=== PATIENT | male | born 1995 | race American Indian/Alaskan Native ===

== ENCOUNTER 2018-09-03 20:52 | Emergency (ER) | payer OTHER ==
[2018-09-03 21:02] VITALS: BP 119/68; PULSE 83; RESP 22; TEMP 97.8; O2SAT 95
--- NOTE | 2018-09-03 21:29 | C.PDOC ---
History Of Present Illness 23 yo male come in for evaluation of nasal congestion, throat itchiness, hives rash developed 5 minutes after had Casas. Pt reports, took benadryl right after with some improvement in symptoms. Pt sts, episode happened 1.5 hrs ago. AT present time, pt still c/o nasal congestion. Pt admits, similar sx in past " to food but not sure what exactly". Pt denies fever chills, throat tightness or swelling, drooling, dysphagia, dyspnea, CP, SOB, wheezing, abd. pain, V/D. AT present time ,pt appears comfortable, not in resp distress. Time Seen by Provider: 09/03/18 21:07 Chief Complaint (Nursing): ENT Problem History Per: Patient Past Medical History Reviewed: Historical Data, Nursing Documentation, Vital Signs Vital Signs: Last Vital Signs Temp 97.8 F 09/03/18 20:59 Pulse 83 09/03/18 20:59 Resp 22 09/03/18 20:59 BP 119/68 09/03/18 20:59 Pulse Ox 95 09/03/18 20:59 Primary Care Provider: Non [facility] Provider, - Medical History PMH: No Chronic Diseases Family History: States: No Known Family Hx - Social History Hx Alcohol Use: No Hx Substance Use: No - Immunization History Hx Tetanus Toxoid Vaccination: No Hx Influenza Vaccination: No Hx Pneumococcal Vaccination: No Review Of Systems Except As Marked, All Systems Reviewed And Found Negative. Constitutional: Negative for: Fever, Chills ENT: Positive for: Nose Congestion. Negative for: Ear Discharge, Nose Discharge, Throat Pain, Throat Swelling Cardiovascular: Negative for: Chest Pain Respiratory: Negative for: Cough, Shortness of Breath, Wheezing Gastrointestinal: Negative for: Nausea, Vomiting, Abdominal Pain Musculoskeletal: Negative for: Neck Pain Skin: Positive for: Rash Neurological: Negative for: Altered Mental Status, Headache, Dizziness Physical Exam - Physical Exam Appears: Well, Non-toxic, No Acute Distress Skin: Normal Color, Warm, Dry, No Rash Head: Normacephalic Eye(s): bilateral: PERRL Nose: No Flaring, No Discharge Oral Mucosa: Moist, No Drooling Tongue: No Swelling Lips: No Swelling Throat: No Erythema, No Drooling, Other (uvula midline, no edema.) Neck: Trachea Midline, Supple Cardiovascular: Rhythm Regular, No Murmur, No JVD Respiratory: No Decreased Breath Sounds, No Accessory Muscle Use, No Stridor, No Wheezing Gastrointestinal/Abdominal: Soft, No Tenderness Extremity: Normal ROM, No Swelling Neurological/Psych: Oriented x3, Normal Speech ED Course And Treatment O2 Sat by Pulse Oximetry: 95 Pulse Ox Interpretation: Normal Progress Note: On re-eval, pt is afebrile, hemodynamicaly stable. NOn-toxic. [place] Po well in Ed. PulseOx 95% RA. ENT: no acute findings, patent airway, uvula midline, no edema. neck: SUpple, (-) meningeal sign. Lungs: CTA B/L, BS equal B/L. ABd: benign. Pt advised avoid food cause allergy. ref. to f/u with PMD, controller repairer and tester in 2-3 days for re-eval. return if any worsneing or new changes Disposition Counseled Patient/Family Regarding: Diagnosis, Need For Followup, Rx Given - Disposition Referrals: [facility] [Outside] Disposition: HOME/ ROUTINE Disposition Time: 21:30 Condition: STABLE Additional Instructions: Avoid food cause allergic reaction take medication as prescribed Follow up with PMD, Metal Burrer in 2-3 days for re-evaluation. Return to ED if any worsening or new changes Prescriptions: Famotidine [Pepcid] 20 mg PO BID #10 tab hydrOXYzine HCl [Atarax] 25 mg PO BID #10 tab Prednisone [Deltasone] 20 mg PO DAILY #3 tablet Instructions: Food Allergy - Clinical Impression Clinical Impression: Allergic reaction
== END 2018-09-03 21:46 | disposition home or self-care (01) ==
LOC: C.ER 20:52
DX: T78.40XA Allergy, unspecified, initial encounter (principal); X58.XXXA Exposure to other specified factors, initial encounter